=== PATIENT | male | born 1965 | race Caucasian/White ===

== ENCOUNTER 2019-11-01 22:15 | Emergency (ER) | payer OTHER ==
[~2019-11-01] VITALS: Ht 172.7 cm; Wt 71.2 kg
[2019-11-02] MEDS ORDERED: KETO10TA2 PO (10:30)
== END 2019-11-02 12:57 | disposition home or self-care (01) ==
LOC: ER 22:15
DX: K40.90 Unilateral inguinal hernia, without obstruction or gangrene, not specified as recurrent (principal)